=== PATIENT | male | born 1955 | race Caucasian/White ===

== ENCOUNTER 2019-01-15 06:29 | Inpatient (IN) | payer OTHER ==
[2019-01-14] MEDS: CEFAZOLIN 2 GM/50 ML (PMX) 50 ML IVPB (06:00)
[2019-01-15] MEDS ORDERED: SEVOFLURANE 15 MIN (07:00)
[2019-01-15] MEDS ORDERED: EPHEDrine SULFATE 50 MG/5 ML SYG (07:00)
[2019-01-15] MEDS ORDERED: GABAPENTIN 300 MG CAP (07:06)
[2019-01-15] MEDS ORDERED: DEXAMETHASONE 1 MG TAB (07:06)
[2019-01-15] MEDS: GABAPENTIN 300 MG CAP PO ×3 (07:07→20:49)
[2019-01-15] MEDS: DEXAMETHASONE 1 MG TAB PO ×2 (07:09→07:30)
[2019-01-15] MEDS: CEFAZOLIN 2 GM/50 ML (PMX) 50 ML IVPB (07:30)
[2019-01-15] MEDS: TRANEXAMIC ACID 1GM/100ML(PMX) 100 ML IVPB ×4 (07:30→10:30)
[2019-01-15] MEDS ORDERED: CEFAZOLIN 1 GM INJ (07:47)
[2019-01-15] MEDS ORDERED: MIDAZOLAM 1 MG/ML 2 ML INJ (07:47)
[2019-01-15] MEDS ORDERED: ROCURONIUM 50 MG INJ (07:47)
[2019-01-15] MEDS ORDERED: ROPIVACAINE 0.5 % 30 ML VIAL (07:47)
[2019-01-15] MEDS ORDERED: PROPOFOL 20 ML (07:47)
[2019-01-15] MEDS: TRANEXAMIC ACID 1GM/100ML(PMX) 100 ML ×2 (07:52→09:10)
[2019-01-15] MEDS: THROMBIN 5000 UNIT VIAL (07:53)
[2019-01-15] MEDS: BUPIVACAINE 0.25%/EPI (SDV) 30 ML INJ (07:53)
[2019-01-15] MEDS: TOBRAMYCIN 1.2 GM POWDER (07:54)
[2019-01-15] MEDS: CA CHLORIDE 10% 10 ML SYRINGE (07:55)
[2019-01-15] MEDS ORDERED: ONDANSETRON 4 MG INJ IV ×2 (08:30→10:30)
[2019-01-15] MEDS ORDERED: EPHEDrine SULFATE 50 MG/5 ML SYG IV (08:30)
[2019-01-15] MEDS ORDERED: MEPERIDINE 25 MG INJ IV (08:30)
[2019-01-15] MEDS ORDERED: OXYCODONE/ACETAMINOPHEN (5/325) TAB PO ×2 (08:30)
[2019-01-15] MEDS ORDERED: HYDROmorphONE 1 MG/5 ML IV SYRINGE IV ×3 (08:30)
[2019-01-15] MEDS ORDERED: FENTAnyl 50 MCG/ML VIAL IV ×3 (08:30)
[2019-01-15] MEDS ORDERED: LABETALOL HCL 20MG INJ IV (08:30)
[2019-01-15] MEDS ORDERED: hydrALAzine 20 MG INJ IV (08:30)
[2019-01-15] MEDS ORDERED: DIPHENHYDRAMINE 50 MG INJ IV ×2 (08:30→10:30)
[2019-01-15] MEDS ORDERED: METOCLOPRAMIDE 10 MG INJ IV (08:30)
[2019-01-15] MEDS ORDERED: ONDANSETRON 4 MG INJ (08:56)
[2019-01-15] MEDS ORDERED: DEXAMETHASONE 4 MG/ML 5 ML INJ (08:56)
[2019-01-15] MEDS ORDERED: KETOROLAC 30 MG INJ ×2 (08:56→10:09)
[2019-01-15] MEDS ORDERED: METOCLOPRAMIDE 10 MG INJ (08:56)
[2019-01-15] MEDS ORDERED: PHENYLephrine 10 MG INJ (09:02)
[2019-01-15] MEDS: BUPIVACAINE 0.5% (SDV) 30 ML, morphine SULFATE (PF) 8 MG, EPINEPHrine 0.3 MG, KETOROLAC... IRR (09:17)
[2019-01-15] MEDS: POLYMYXIN/BACITRACIN 1L IRRIG (09:17)
[2019-01-15] MEDS ORDERED: HETASTARCH 6% NACL 500 ML (09:35)
[2019-01-15] MEDS ORDERED: SUGAMMADEX SODIUM 200 MG/2 ML VIAL IV (10:09)
[2019-01-15] MEDS ORDERED: oxyCODONE 5 MG TAB PO ×2 (10:30)
[2019-01-15] MEDS ORDERED: NACL 0.9% 3 ML SYG IV (10:30)
[2019-01-15] MEDS ORDERED: NON-FORMULARY/PATIENT OWN MED (Temazepam* 30 MG) PO (10:30)
[2019-01-15] MEDS ORDERED: LOPERAMIDE 2 MG CAP PO (10:30)
[2019-01-15] MEDS ORDERED: MAGNESIUM HYDROXIDE 30ML CUP PO (10:30)
[2019-01-15] MEDS ORDERED: CEFAZOLIN 1 GM/50 ML (PMX) 50 ML IVPB (10:30)
[2019-01-15] MEDS: DEXAMETHASONE 2 MG TAB PO ×3 (14:15→23:07)
[2019-01-15] MEDS: ACETAMINOPHEN 500 MG TAB PO ×3 (14:15→23:06)
[2019-01-15] MEDS: KETOROLAC 15 MG INJ IV (17:03)
[2019-01-15] MEDS: CEFAZOLIN 1 GM/50 ML (PMX) 50 ML IVPB ×2 (17:07→23:06)
[2019-01-15] MEDS: oxyCODONE 5 MG TAB PO (20:48)
[2019-01-15] MEDS: SENNA/DOCUSATE NA (8.6MG/50MG) TAB PO (20:49)
[2019-01-15] MEDS ORDERED: NON-FORMULARY/PATIENT OWN MED (Pravastatin Sodium* 20 MG) PO (21:00)
[2019-01-16] MEDS: KETOROLAC 15 MG INJ IV ×2 (00:58→09:38)
[2019-01-16] MEDS: ZOLPIDEM 5 MG TAB PO (01:03)
[2019-01-16] MEDS: HYDROmorphONE 1 MG/ML SYG IV (05:26)
[2019-01-16] MEDS: DEXAMETHASONE 2 MG TAB PO (05:26)
[2019-01-16] MEDS: ACETAMINOPHEN 500 MG TAB PO (05:26)
[2019-01-16] MEDS: LEVOTHYROXINE 112 MCG TAB PO (06:25)
[2019-01-16] MEDS: CEFAZOLIN 1 GM/50 ML (PMX) 50 ML IVPB (07:55)
[2019-01-16] MEDS: SENNA/DOCUSATE NA (8.6MG/50MG) TAB PO (08:50)
[2019-01-16] MEDS: ATENOLOL 50 MG TAB PO (08:50)
[2019-01-16] MEDS: LOSARTAN 25 MG TAB PO (08:50)
== END 2019-01-16 10:15 | disposition home or self-care (01) | DRG 483 ==
LOC: REC 06:29 → MS1 12:01
PROC: 0RRJ0JZ Replacement of Right Shoulder Joint with Synthetic Substitute, Open Approach (ICD-10-PCS; principal; 2019-01-15 08:00)
PROC: 0LS30ZZ Reposition Right Upper Arm Tendon, Open Approach (ICD-10-PCS; 2019-01-15 08:00)
DX: M19.011 Primary osteoarthritis, right shoulder (principal); S46.211A Strain of muscle, fascia and tendon of other parts of biceps, right arm, initial encounter; I10 Essential (primary) hypertension; E78.5 Hyperlipidemia, unspecified; E03.9 Hypothyroidism, unspecified
CPT/HCPCS: 73030-RT; 86999; 88304; 88311; 97167